=== PATIENT | female | born 1985 | race Caucasian/White ===

== ENCOUNTER 2018-03-31 09:24 | Emergency (ER) | payer MEDICAID ==
[~2018-03-31] VITALS: Ht 160 cm; Wt 57.8 kg
[2018-03-31 09:37] VITALS: Ht 160 cm; Wt 57.8 kg
[2018-03-31 10:20] VITALS: BP 110/68
== END 2018-03-31 10:20 | disposition home or self-care (01) ==
LOC: ED 09:24
DX: H10.9 Unspecified conjunctivitis (principal)